=== PATIENT | male | born 1935 | race Two or more races ===

== ENCOUNTER 2017-07-27 22:09 | Observation (INO) | payer MEDICARE, OTHER ==
[~2017-07-27] VITALS: Ht 172.7 cm; Wt 62.7 kg
[2017-07-27 23:22] LABS: BASOPHILS % (AUTO) 0.4 % (0-1); EOSINOPHILS # (AUTO) 0.4 X10'3 (0-0.9); EOSINOPHILS % (AUTO) 5.3 % (0-6); HEMATOCRIT 40.1 % (42.0-52.0); HEMOGLOBIN 13.3 g/dl (14.0-17.9); LYMPHOCYTES # (AUTO) 1.1 X10'3 (1.1-4.8); LYMPHOCYTES % (AUTO) 15.7 % (21-51); MEAN CORPUSCULAR HEMOGLOBIN 27.3 PG (27.0-31.0); MEAN CORPUSCULAR VOLUME 82.8 FL (78-98); MEAN PLATELET VOLUME 9.1 FL (7.4-10.4); MONOCYTES # (AUTO) 0.5 X10'3 (0-0.9); MONOCYTES % (AUTO) 6.9 % (2-12); NEUTROPHILS # (AUTO) 4.8 X10'3 (1.8-7.7); NEUTROPHILS % (AUTO) 71.7 % (42-75); PLATELET COUNT 166 X10'3 (140-440); RED BLOOD COUNT 4.85 X10'6 (4.70-6.10); RED CELL DISTRIBUTION WIDTH 14.8 % (11.5-14.5); WHITE BLOOD COUNT 6.8 X10'3 (4.5-11.0)
[2017-07-27 23:32] LABS: D-DIMER 0.34 MG/L FEU (0-0.50)
[2017-07-27] MEDS ORDERED: dexamethasone 4mg tablet PO ONE (23:35)
[2017-07-27] MEDS ORDERED: ipratropium/albuterol 3ml nebule NEB ONE (23:35)
[2017-07-27 23:42] LABS: ALANINE AMINOTRANSFERASE 26 U/L (12-78); ALBUMIN 3.8 G/DL (3.4-5.0); ALBUMIN/GLOBULIN RATIO 0.9 (1.1-1.5); ALKALINE PHOSPHATASE 75 IU/L (46-116); ANION GAP 10 (8-16); ASPARTATE AMINO TRANSFERASE 24 U/L (10-37); BILIRUBIN,TOTAL 0.4 MG/DL (0.1-1.0); BLOOD UREA NITROGEN 23 MG/DL (7-18); CHLORIDE 104 MMOL/L (99-107); CREATININE 1.28 MG/DL (0.60-1.10); GLUCOSE 104 MG/DL (70-104); POTASSIUM 4.6 MMOL/L (3.5-5.1); SODIUM 140 MMOL/L (135-145); TOTAL CARBON DIOXIDE 25.6 MMOL/L (24-32); TOTAL PROTEIN 7.9 G/DL (6.4-8.2); eGFR 54 ML/MIN
[2017-07-27] MEDS ORDERED: aspirin 81mg tab.chew PO ONE ×2 (23:50)
[2017-07-28] VITALS (11 sets, daily range): BP systolic 136–161; BP diastolic 70–114
[2017-07-28] MEDS ORDERED: magnesium hydroxide 30ml (MOM) UD suspension PO PRN (03:25)
[2017-07-28] MEDS ORDERED: ondansetron/PF 4mg/2ml inj IV PRN (03:25)
[2017-07-28] MEDS ORDERED: potassium Cl 40MEQ/NS 500ml 500 ML IV PRN ×2 (03:25)
[2017-07-28] MEDS ORDERED: acetaminophen 325mg tablet PO PRN (03:25)
[2017-07-28] MEDS ORDERED: mag hydrox/Alum hydrox/simeth 30ml oral suspension PO PRN (03:25)
[2017-07-28] MEDS ORDERED: potassium Cl 20 mEq SR tablet PO PRN ×2 (03:25)
[2017-07-28] MEDS ORDERED: nitroGLYCERIN 0.4mg SUBLingual tab SL PRN (03:25)
[2017-07-28] MEDS ORDERED: metoprolol tartrate 1mg/ml inj IV PRN (03:25)
[2017-07-28] MEDS ORDERED: aminophylline 250mg/10ml inj. IV PRN (03:25)
[2017-07-28] MEDS ORDERED: azithromycin 250mg tablet PO ONE (03:30)
[2017-07-28 04:49] LABS: CHOL/HDL RATIO 1.3 (0.00-4.99); CHOLESTEROL 103 MG/DL (0-200); HDL CHOLESTEROL 82 MG/DL (35-60); LDL CHOLESTEROL 15 MG/DL (50-100)
[2017-07-28 05:10] LABS: TRIGLYCERIDES < 15 MG/DL (20-135)
[2017-07-28] MEDS ORDERED: K and/or MAG REPLACEMENT MC SCH (08:00)
[2017-07-28] MEDS ORDERED: aspirin 81mg tablet.DR PO SCH (08:00)
[2017-07-28] MEDS ORDERED: lisinopril 10 MG tablet PO SCH (08:00)
[2017-07-28] MEDS ORDERED: methylPREDNISolone sod succ/PF 40mg inj. IV SCH ×2 (08:00→20:00)
[2017-07-28] MEDS ORDERED: regadenoson 0.4mg/5ml syringe IV ONE ×2 (08:00→09:55)
[2017-07-28] MEDS: ipratropium/albuterol 3ml nebule NEB SCH ×2 (08:50→12:02)
[2017-07-28] MEDS ORDERED: budesonide 0.5mg/2ml UD nebule IH SCH (09:00)
[2017-07-28] MEDS ORDERED: aminophylline inj. 10 ML IV ONE (09:54)
[2017-07-28] MEDS ORDERED: BUDE10.2 INH (11:16)
[2017-07-28] MEDS ORDERED: [UNRECOGNIZED DRUG - OTHER] (11:19)
[2017-07-28] MEDS ORDERED: LOSA25TA96 PO (11:20)
[2017-07-28] MEDS ORDERED: BUDE0.5A11 NEB (11:20)
[2017-07-28] MEDS ORDERED: ASPI-1071 PO (12:18)
[2017-07-28] MEDS ORDERED: AZI25OT PO (12:18)
[2017-07-28] MEDS ORDERED: IPRA3AMP9 NEB (12:18)
[2017-07-29] MEDS ORDERED: azithromycin 250mg tablet PO SCH (08:00)
[2017-07-29] MEDS ORDERED: pneumococcal 23-VAL P-sac vacc 25 mcg/0.5ml vial IMVAC ONE (12:00)
== END 2017-07-28 19:25 | disposition home or self-care (01) ==
LOC: ER 22:10 → ED HOLD 07-28 03:25
PROVIDERS: ADMIT Family Medicine; ATTEND Family Medicine
DX: R06.02 Shortness of breath (principal); R79.89 Other specified abnormal findings of blood chemistry; I12.9 Hypertensive chronic kidney disease with stage 1 through stage 4 chronic kidney disease, or unspecified chronic kidney disease; N18.3 Chronic kidney disease, stage 3 (moderate); Z82.5 Family history of asthma and other chronic lower respiratory diseases
CPT/HCPCS: 36415; 71046; 78452; 80053; 80061; 83880; 84484; 85025; 85379; 87070; 93005; 93017; 93306; 94640; 94760; 96374; 99285; A9500; G0378; J0280; J2920; J7626; J8540